=== PATIENT | female | born 1945 | race Caucasian/White ===

== ENCOUNTER → 2017-03-02 | Outpatient (CLI) | payer MEDICARE, BC | LOC: MAMMO 14:19 | DX: Z12.31 Encounter for screening mammogram for malignant neoplasm of breast (principal) | CPT/HCPCS: G0202 ==

== ENCOUNTER → 2022-08-07 | Outpatient (CLI) | payer MEDICARE, BC | LOC: RAD 11:15 | DX: M19.071 Primary osteoarthritis, right ankle and foot (principal) ==